=== PATIENT | female | born 1940 | race Caucasian/White ===

== ENCOUNTER 2018-04-23 13:23 | Emergency (ER) | payer MEDICARE, MEDICAID ==
[~2018-04-23 13:23] MED LIST: ACET-2031 PO; ADV100/50 INH; AMLO-111 PO; AMOX-559 PO; ASPI-1441 PO; ASPI-879 PO; ATOR20TA65 PO; AZIT-1 PO; BENA10TA55 PO; BUM2 PO; BUME1TAB19 PO; BUS10 PO; BUSP10TA95 PO; CAR6.25 PO; CARV12.578 PO; DIGO0.25 PO; DIGO125T25 PO; DOCU-416 PO; ESOM40CA42 PO; ESTR1.2525 PO; ESTR1PAT3 TD; FLUT1DIS27 IH; FLUT1DIS28 IH; GAB800PT PO; HYDR-4225 PO; ISOM60 PO; ISOS10TA63 PO; ISOS30TA54 PO; KET10 PO; LOR5 PO; LOR5/325 PO; LOTRIL; MELO-149 PO; MELO-205 PO; MOM PO; MORP-183 PO; OMEP40CA45 PO; OXYC-865 PO; PARO40TA88 PO; POLY17PO25 PO; POLY17PO33 PO; POTA10CA40 PO; RANI150T9 PO; SERT-181 PO; TRAM-420 PO; [UNRECOGNIZED DRUG - CODE] PO; [UNRECOGNIZED DRUG - SUPPLY] PO
--- NOTE | 2018-04-23 13:38 | ER Report ---
History and Physical Time Seen By MD: 13:34 Hx. of Stated Complaint: high bp as per home health nurse, frontal headache and weakness HPI/ROS CHIEF COMPLAINT: High blood pressure and headache HISTORY OF PRESENT ILLNESS: This is a 78-year-old female who presents to the emergency Department for high blood pressure and a headache. Patient states that over the last couple weeks she's had a couple of falls, hit the back of her head. She's had intermittent headaches, has a headache today. Patient also had her HEAD OF PHYSICS check her blood pressure today during a home health visit, the diastolic was noted to be well over 100, systolic over 200. She has a frontal headache. No visual changes. No numbness or tingling. No facial droop. No nausea or vomiting. No chest pain or shortness of breath. REVIEW OF SYSTEMS: Constitutional: No fever, no chills. Eyes: No discharge. ENT: No sore throat. Cardiovascular: As above. Respiratory: No cough, no shortness of breath. Gastrointestinal: No abdominal pain, no vomiting. Genitourinary: No hematuria. Musculoskeletal: No back pain. Skin: No rashes. Neurological: As above. Allergies: Coded Allergies: poppyseed oil (Unverified Allergy, Intermediate, RASH, 03/17/15) codeine (Verified Allergy, Mild, SHORTNESS OF BREATH, 01/06/16) Uncoded Allergies: TEGADERM (Allergy, Mild, RASH, 07/07/07) Home Meds Reported Medications Estradiol (ESTRADIOL 0.05 MG) 1 Each Patch.tdwk, 1 EACH TD Q7D, PATCH.WK 01/06/16 Isosorbide Mononitrate (ISOSORBIDE MONONITRATE) 10 Mg Tablet, 10 MG PO DAILY 01/06/16 Aspirin/Calcium Carbonate/Mag (ASPIRIN BUFFERED 325 MG TAB) 325 Mg Tablet, 325 MG PO DAILY 01/06/16 Esomeprazole Magnesium (NEXIUM) 40 Mg Capsule.dr, 1 CAP PO QDAY, CAP 03/17/15 Tramadol Hcl (TRAMADOL HCL) 50 Mg Tablet, 50-100 MG PO Q4-6H PRN for PAIN 03/17/15 Buspirone Hcl (BUSPIRONE HCL) 10 Mg Tablet, 10 MG PO DAILY, #20 TAB 03/17/15 Meloxicam (MELOXICAM) 7.5 Mg Tablet, 7.5 MG PO BID 03/17/15 Atorvastatin Calcium (ATORVASTATIN CALCIUM) 20 Mg Tablet, 20 MG PO HS TAKE ONE TABLET BY MOUTH ONCE A DAY AT BED TIME 06/08/13 Amlodipine Besylate (AMLODIPINE BESYLATE) 5 Mg Tablet, 5 MG PO DAILY 06/08/13 Sertraline Hcl (SERTRALINE HCL) 100 Mg Tablet, 100 MG PO BID 06/08/13 Benazepril Hcl (BENAZEPRIL HCL) 10 Mg Tab, 10 MG PO QDAY, TAB 06/08/13 Hydroxyzine Hcl (HYDROXYZINE HCL) 25 Mg Tablet, 25 MG PO HS PRN for SLEEP MAY USE 3 TIMES DAILY NEEDED FOR ITCHING 06/08/13 Discontinued Reported Medications Digoxin (LANOXIN) 125 Mcg Tablet, 0.125 MG PO DAILY 06/08/13 Past Medical/Surgical History The patient has a past medical and surgical history of 2 heart attacks, occasionally has A. fib, congestive heart failure, hypertension, uses oxygen, emphysema, COPD, GERD, collarbone fracture, broken jaw, back pain, wears dentures, wears glasses, hard of hearing, depression, anxiety, appendectomy, cholecystectomy, hysterectomy, spinal fusion. Reviewed Nurses Notes: Yes Hx Smoking: No Smoking Status: Never Smoker Exposure to Second Hand Smoke?: Yes (All her life) Hx Substance Use Disorder: No Hx Alcohol Use: No Constitutional Vital Sign - Last 24 Hours 04/23/18 04/23/18 04/23/18 04/23/18 13:23 13:28 13:29 13:34 Temp 97.5 Pulse ??? 79 Resp 20 B/P (MAP) 156/97 (116) 156/97 167/94 (118) Pulse Ox 97 O2 Delivery Room Air 04/23/18 04/23/18 04/23/18 04/23/18 13:38 13:48 13:53 14:00 Pulse 81 80 Resp 9 22 B/P (MAP) 151/85 (107) 151/125 (134) Pulse Ox 95 97 04/23/18 04/23/18 04/23/18 04/23/18 14:08 14:23 14:30 14:38 Pulse 75 80 71 Resp 16 29 23 B/P (MAP) 149/78 (101) Pulse Ox 97 94 95 04/23/18 04/23/18 04/23/18 14:53 15:00 15:08 Pulse ? B/P (MAP) ???/??? (0080) Physical Exam General Appearance: The patient is alert, has no immediate need for airway protection and no signs of toxicity. Eyes: Pupils equal and round no pallor or injection. ENT, Mouth: Mucous membranes are dry. Respiratory: There are no retractions, lungs are clear to auscultation. Cardiovascular: Regular rate and rhythm, no murmurs, clicks or rubs. Gastrointestinal: Abdomen is soft and non tender, no masses, bowel sounds normal. Neurological: Alert and oriented 4. Moving all extremities. Following all commands. No focal neuro deficits. No facial droop. Sensation intact. Skin: Warm and dry, no rashes. Musculoskeletal: Neck is supple non tender. Extremities are nontender, nonswollen and have full range of motion. DIFFERENTIAL DIAGNOSIS: After history and physical exam differential diagnosis was considered for headache including but not limited to subarachnoid hemorrhage, migraine headache, tension headache and infectious causes such as meningitis, pharyngitis and sinusitis. Medical Decision Making Data Points Result Diagram: 04/23/18 1440 04/23/18 1440 Laboratory Hematology Test 04/23/18 14:30 04/23/18 14:40 Urine Color Yellow Urine Clarity Clear Urine pH 7.0 pH (4.8-9.5) Urine Specific [place] 1.013 Urine Protein Negative mg/dL (NEGATIVE) Urine Glucose (UA) Negative mg/dL (NEGATIVE) Urine Ketones Negative mg/dL (NEGATIVE) Urine Blood Negative (NEGATIVE) Urine Nitrite Negative (NEGATIVE) Urine Bilirubin Negative (NEGATIVE) Urine Urobilinogen Negative mg/dL (0.2-1.9) Urine Leukocyte Esterase Negative (NEGATIVE) Urine RBC 1 /HPF (0-2/HPF) Urine WBC 5 /HPF (0-5/HPF) Urine Squamous Epithelial Cells Many /LPF (</=FEW) Urine Bacteria Few /HPF (NONE-FEW) Urine Mucus None /HPF (NONE-FEW) Red Blood Count 4.22 M/uL (4.17-5.56) Mean Corpuscular Volume 95.5 fL (80.0-96.0) Mean Corpuscular Hemoglobin 32.2 pg (26.0-33.0) Mean Corpuscular Hemoglobin Concent 33.7 g/dL (32.0-36.0) Red Cell Distribution Width 14.4 % (11.5-14.5) Mean Platelet Volume 8.4 fL (7.2-11.1) Neutrophils (%) (Auto) 66.4 % (39.4-72.5) Lymphocytes (%) (Auto) 25.1 % (17.6-49.6) Monocytes (%) (Auto) 6.4 % (4.1-12.4) Eosinophils (%) (Auto) 1.5 % (0.4-6.7) Basophils (%) (Auto) 0.6 % (0.3-1.4) Nucleated RBC Relative Count (auto) 0.0 /100WBC Neutrophils # (Auto) 5.5 K/uL (2.0-7.4) Lymphocytes # (Auto) 2.1 K/uL (1.3-3.6) Monocytes # (Auto) 0.5 K/uL (0.3-1.0) Eosinophils # (Auto) 0.1 K/uL (0.0-0.5) Basophils # (Auto) 0.0 K/uL (0.0-0.1) Nucleated RBC Absolute Count (auto) 0.00 K/uL Sodium Level 140 mmol/L (137-145) Potassium Level 3.5 mmol/L (3.5-5.0) Chloride Level 112 mmol/L (98-107) Carbon Dioxide Level 24 mmol/L (22-31) Blood Urea Nitrogen 16 mg/dl (7-18) Creatinine 0.60 mg/dl (0.52-1.04) Glomerular Filtration Rate Calc > 60.0 Random Glucose 99 mg/dl (75-110) Calcium Level 9.0 mg/dl (8.4-10.2) Total Bilirubin 0.2 mg/dl (0.2-1.3) Aspartate Amino Transf (AST/SGOT) 21 U/L (0-35) Alanine Aminotransferase (ALT/SGPT) 21 U/L (0-56) Alkaline Phosphatase 83 U/L (0-126) Troponin I < 0.012 ng/ml Total Protein 6.7 g/dl (6.3-8.2) Albumin 3.7 g/dl (3.5-5.0) Chemistry Test 04/23/18 14:30 04/23/18 14:40 Urine Color Yellow Urine Clarity Clear Urine pH 7.0 pH (4.8-9.5) Urine Specific [place] 1.013 Urine Protein Negative mg/dL (NEGATIVE) Urine Glucose (UA) Negative mg/dL (NEGATIVE) Urine Ketones Negative mg/dL (NEGATIVE) Urine Blood Negative (NEGATIVE) Urine Nitrite Negative (NEGATIVE) Urine Bilirubin Negative (NEGATIVE) Urine Urobilinogen Negative mg/dL (0.2-1.9) Urine Leukocyte Esterase Negative (NEGATIVE) Urine RBC 1 /HPF (0-2/HPF) Urine WBC 5 /HPF (0-5/HPF) Urine Squamous Epithelial Cells Many /LPF (</=FEW) Urine Bacteria Few /HPF (NONE-FEW) Urine Mucus None /HPF (NONE-FEW) White Blood Count 8.3 k/uL (4.5-11.0) Red Blood Count 4.22 M/uL (4.17-5.56) Hemoglobin 13.6 g/dL (12.0-16.0) Hematocrit 40.2 % (34.0-47.0) Mean Corpuscular Volume 95.5 fL (80.0-96.0) Mean Corpuscular Hemoglobin 32.2 pg (26.0-33.0) Mean Corpuscular Hemoglobin Concent 33.7 g/dL (32.0-36.0) Red Cell Distribution Width 14.4 % (11.5-14.5) Platelet Count 231 K/uL (150-450) Mean Platelet Volume 8.4 fL (7.2-11.1) Neutrophils (%) (Auto) 66.4 % (39.4-72.5) Lymphocytes (%) (Auto) 25.1 % (17.6-49.6) Monocytes (%) (Auto) 6.4 % (4.1-12.4) Eosinophils (%) (Auto) 1.5 % (0.4-6.7) Basophils (%) (Auto) 0.6 % (0.3-1.4) Nucleated RBC Relative Count (auto) 0.0 /100WBC Neutrophils # (Auto) 5.5 K/uL (2.0-7.4) Lymphocytes # (Auto) 2.1 K/uL (1.3-3.6) Monocytes # (Auto) 0.5 K/uL (0.3-1.0) Eosinophils # (Auto) 0.1 K/uL (0.0-0.5) Basophils # (Auto) 0.0 K/uL (0.0-0.1) Nucleated RBC Absolute Count (auto) 0.00 K/uL Glomerular Filtration Rate Calc > 60.0 Calcium Level 9.0 mg/dl (8.4-10.2) Total Bilirubin 0.2 mg/dl (0.2-1.3) Aspartate Amino Transf (AST/SGOT) 21 U/L (0-35) Alanine Aminotransferase (ALT/SGPT) 21 U/L (0-56) Alkaline Phosphatase 83 U/L (0-126) Troponin I < 0.012 ng/ml Total Protein 6.7 g/dl (6.3-8.2) Albumin 3.7 g/dl (3.5-5.0) Urinalysis Test 04/23/18 14:30 Urine Color Yellow Urine Clarity Clear Urine pH 7.0 pH (4.8-9.5) Urine Specific [place] 1.013 Urine Protein Negative mg/dL (NEGATIVE) Urine Glucose (UA) Negative mg/dL (NEGATIVE) Urine Ketones Negative mg/dL (NEGATIVE) Urine Blood Negative (NEGATIVE) Urine Nitrite Negative (NEGATIVE) Urine Bilirubin Negative (NEGATIVE) Urine Urobilinogen Negative mg/dL (0.2-1.9) Urine Leukocyte Esterase Negative (NEGATIVE) Urine RBC 1 /HPF (0-2/HPF) Urine WBC 5 /HPF (0-5/HPF) Urine Squamous Epithelial Cells Many /LPF (</=FEW) Urine Bacteria Few /HPF (NONE-FEW) Urine Mucus None /HPF (NONE-FEW) EKG/Imaging EKG Interpretation 12 lead EKG: Time of EKG 1400. Rhythm: Normal sinus rhythm, ventricular rate 75 bpm. Palm: normal QRS: normal ST segments: No ST depression or elevation identified, flattened T waves in V2, V3 and V4. Imaging Location: [facility] - [place] Patient: Le Rojas : 1940 Visit/Account:[id number] Date of Sevice: 04/23/2018 EXAMINATION: Portable chest radiograph single view at 2:51 PM HISTORY: Hypertension, headache. COMPARISON: 03/17/2015. FINDINGS: A single portable AP view of the chest is obtained. Lines/tubes: None. Lungs/pleura: No focal consolidation or pleural effusion. Pulmonary vascularity is within normal limits. No evidence of pneumothorax. Heart: Stable normal heart size. Mediastinum: Negative. Bony structures/body wall: Right convex curvature of the lumbar spine. Lumbar spine fusion hardware is partially visualized. Suture anchor in the left humeral head. Multilevel degenerative changes in the spine. IMPRESSION: No radiographic evidence of acute cardiopulmonary disease. Report Dictated By: Bjorn Camp MD at 04/23/2018 3:02 PM Report E-Signed By: Bjorn Camp MD at 04/23/2018 3:04 PM WSN:[id number] Location: [facility] - [place] Patient: Le Rojas : 1940 Visit/Account:[id number] Date of Sevice: 04/23/2018 CT OF THE BRAIN WITHOUT CONTRAST HISTORY: Headache PROCEDURE: 3.0 mm contiguous axial sections were performed through the brain. Sagittal and coronal reformats were submitted. COMPARISON: CT brain July 21, 2012 FINDINGS: BRAIN: Brain and intracranial structures: There is no mass lesion, hemorrhage or acute infarct. Mild periventricular and deep white matter hypoattenuation likely reflect chronic ischemic change. Cerebral volume loss is mild. Orbits (included portions): Normal. Scalp: Normal. Skull: Normal. Paranasal sinuses and mastoid air cells (included portions): Normal. IMPRESSION: No evidence of acute intracranial abnormality. One of the following dose optimization techniques was utilized in the performance of this exam: Automated exposure control; adjustment of the mA and/or kV according to the patient's size; or use of an iterative reconstruction technique. Specific details can be referenced in the facility's radiology CT exam operational policy. Report Dictated By: Sonia Savage MD at 04/23/2018 3:19 PM Report E-Signed By: Sonia Savage MD at 04/23/2018 3:30 PM WSN:[id number] ED Course/Re-evaluation Clinical Indication for ER IV: IV Access ED Course The patient was admitted to room. A history and physical obtained. Differential diagnoses were considered. IV was started. A CBC, CMP, troponin were obtained. Laboratory studies unremarkable. Negative troponin. Negative UA. EKG showing a normal sinus rhythm. Chest x-ray was negative for any acute process. CT of the brain negative for any acute intracranial process. I reviewed the laboratory studies and the imaging results with the patient. She was given 650 mg by mouth Tylenol. She states the headache is improved since her blood pressure has improved with the 10 mg IV labetalol. I did tell patient that the headache is li segundo secondary to her elevated blood pressure. I did recommend following up with her primary care provider within the next 2-4 days for reevaluation and discussion on her blood pressure medications. I also recommended limited sodium intake. The patient exposed understanding and was discharged home. Patient was agreeable with this plan and care. She was also instructed to return to the ER for any other concerns or worsening symptoms. Decision to Disposition Date: Apr 23, 2018 Decision to Disposition Time: 15:44 Depart Departure Latest Vital Signs Vital Signs Date Time Temp Pulse Resp B/P (MAP) Pulse Ox O2 Delivery O2 Flow Rate FiO2 04/23/18 15:08 ??? 04/23/18 15:00 ???/??? (1665) 04/23/18 14:38 23 95 04/23/18 13:29 97.5 Room Air Impression: Primary Impression: Hypertension Additional Impression: Headache Condition: Improved Disposition: HOME OR SELF-CARE Referrals: AUDREY ULLOA MD (PCP) 2 Days Patient Instructions: Acute Headache (ED), Chronic Hypertension (ED) Additional Instructions: Your laboratory studies and imaging studies did not show anything concerning today. Your blood pressure has come down, I would however like you to follow-up with your primary care provider within the next 2-4 days for reevaluation and consideration of increasing your blood pressure medication or changing her medications altogether. Drink plenty of water. Get plenty of rest. Limit your sodium intake. Return to the emergency department for any other concerns or worsening symptoms. You can take up to 650 mg of Tylenol every 6-8 hours as needed for your headache. Problem Qualifiers Primary Impression: Hypertension Hypertension type: essential hypertension Qualified Codes: I10 - Essential (primary) hypertension Additional Impression: Headache Headache type: unspecified Headache chronicity pattern: acute headache Intractability: not intractable Qualified Codes: R51 - Headache JAMILA MAR [employer]OL MANAGER-BC Apr 23, 2018 13:38
[2018-04-23] MEDS ORDERED: NS(*) 0.9% 500 ML BAG 500 ML IV ONE (13:50)
[2018-04-23] MEDS ORDERED: LABETALOL HCL 100 MG/20ML VIAL IVP ONE (13:50)
--- NOTE | 2018-04-23 14:20 | EKG ---
FACILITY: [facility] - [place], [place] PATIENT NAME: JESSICA WHITTINGTON : [id number] MR: [id number] V: [id number] EXAM DATE: ORDERING PHYSICIAN: JAMILA MAR TECHNOLOGIST: ERNESTO Lamar Reason : HTN Blood Pressure : / mmHG Vent. Rate : 075 BPM Atrial Rate : 075 BPM P-R Int : 130 ms QRS Dur : 090 ms QT Int : 372 ms P-R-T Axes : 053 007 035 degrees QTc Int : 415 ms Normal sinus rhythm Normal ECG When compared with ECG of 17-MAR-2015 20:36, No significant change was found Confirmed by Adolfo Rodriguez ([id number]) on 04/23/2018 7:59:41 PM Referred By: Confirmed By:Adolfo Malin
[2018-04-23 14:46] LABS: PLATELET COUNT, AUTOMATED 231 K/uL (150-450)
--- NOTE | 2018-04-23 15:09 | RADIOLOGY IMAGING REPORT ---
FACILITY: [facility] - [place] PATIENT NAME: Le Rojas : 1940 MR: [id number] V: [id number] EXAM DATE: ORDERING PHYSICIAN: JAMILA MAR TECHNOLOGIST: Location: [facility] Patient: Le Rojas : 1940 Visit/Account:[id number] Date of Sevice: 04/23/2018 EXAMINATION: Portable chest radiograph single view at 2:51 PM HISTORY: Hypertension, headache. COMPARISON: 03/17/2015. FINDINGS: A single portable AP view of the chest is obtained. Lines/tubes: None. Lungs/pleura: No focal consolidation or pleural effusion. Pulmonary vascularity is within normal li mits. No evidence of pneumothorax. Heart: Stable normal heart size. Mediastinum: Negative. Bony structures/body wall: Right convex curvature of the lumbar spine. Lumbar spine fusion hardware is partially visualized. Suture anchor in the left humeral head. Multilevel degenerative changes i n the spine. IMPRESSION: No radiographic evidence of acute cardiopulmonary disease. Report Dictated By: Bjorn Camp MD at 04/23/2018 3:02 PM Report E-Signed By: Bjorn Camp MD at 04/23/2018 3:04 PM WSN:[id number]
--- NOTE | 2018-04-23 15:34 | RADIOLOGY IMAGING REPORT ---
FACILITY: [facility] [place] PATIENT NAME: Le Rojas : 1940 MR: [id number] V: [id number] EXAM DATE: ORDERING PHYSICIAN: JAMILA MAR TECHNOLOGIST: [place] [facility] [place] Ro[place] : 1940 Visit/Account:[id number] Date of Sevice: 04/23/2018 CT OF THE BRAIN WITHOUT CONTRAST HISTORY: Headache PROCEDURE: 3.0 mm contiguous axial sections were performed through the brain. Sagittal and coronal r eformats were submitted. COMPARISON: CT brain July 21, 2012 FINDINGS: BRAIN: Brain and intracranial structures: There is no mass lesion, hemorrhage or acute infarct. Mild periven tricular and deep white matter hypoattenuation likely reflect chronic ischemic change. Cerebral volum e loss is mild. Orbits (included portions): Normal. Scalp: Normal. Skull: Normal. Paranasal sinuses and mastoid air cells (included portions): Normal. IMPRESSION: No evidence of acute intracranial abnormality. One of the following dose optimization techniques was utilized in the performance of this exam: Autom ated exposure control; adjustment of the mA and/or kV according to the patient's size; or use of an i terative reconstruction technique. Specific details can be referenced in the facility's radiology C T exam operational policy. Report Dictated By: Sonia Savage MD at 04/23/2018 3:19 PM Report E-Signed By: Sonia Savage MD at 04/23/2018 3:30 PM WSN:[id number]
[2018-04-23] MEDS ORDERED: ACETAMINOPHEN 325 MG TAB PO ONE (15:35)
[2018-04-23 16:30] LABS: INR 0.92
== END 2018-04-23 16:00 | disposition home or self-care (01) ==
LOC: ER 13:37
DX: I10 Essential (primary) hypertension (principal); R51 Headache
CPT/HCPCS: 36415; 70450; 71045; 81001; 84484; 85025; 85610; 93005; 96361; 96374; 99284; A9270; J3490; J7040; 82040; 82247; 82310; 82374; 82435; 82565; 82947; 84075; 84132; 84155; 84295; 84450; 84460; 84520